=== PATIENT | female | born 1985 | race Two or more races ===

== ENCOUNTER 2023-03-23 07:45 | Emergency (ER) | payer MEDICAID, OTHER ==
[~2023-03-23] VITALS: Ht 157.5 cm; Wt 48.1 kg
[2023-03-23] MEDS ORDERED: cefTRIAXone SOD 500 MG VL IM ONE (09:30)
[2023-03-23] MEDS ORDERED: ONDANSETRON ODT 4 MG TAB PO ONE (09:30)
[2023-03-23] MEDS ORDERED: DexAMETHasone SOD PHOS 10MG/1ML VIAL INJ PO ONE (09:30)
[2023-03-23] MEDS ORDERED: ZOFR4T PO (09:51)
[2023-03-23] MEDS ORDERED: IBUP1TAB5 PO (09:51)
[2023-03-23] MEDS ORDERED: BENZ100C97 PO (09:51)
[2023-03-23] MEDS ORDERED: PROM1SOL4 PO (09:51)
[2023-03-23 10:00] VITALS: PULSE 76; RESP 15; O2SAT 98
[2023-03-23 10:15] VITALS: BP 113/77; PULSE 76; RESP 15; TEMP 98.2; O2SAT 98
== END 2023-03-23 10:37 | disposition home or self-care (01) ==
LOC: ER 07:45
DX: J06.9 Acute upper respiratory infection, unspecified (principal)
CPT/HCPCS: 96372; 99283; J0696; J1100; Q0162

== ENCOUNTER 2025-03-03 18:25 | Emergency (ER) | payer MEDICAID ==
[~2025-03-03] VITALS: Ht 157.5 cm; Wt 47.6 kg
[~2025-03-03 18:25] MED LIST: BENZ100C97 PO; IBUP1TAB5 PO; PROM1SOL4 PO; ZOFR4T PO
[2025-03-03 18:27] VITALS: BP 118/71; PULSE 81; RESP 18; TEMP 98.3; O2SAT 96
[2025-03-03] MEDS ORDERED: METH4PAK PO (18:45)
[2025-03-03] MEDS ORDERED: TIZA-142 PO (18:45)
[2025-03-03] MEDS ORDERED: AUG875T PO (18:45)
--- NOTE | 2025-03-03 18:46 | ED.PDOC ---
Back pain HPI HPI Comments 39-year-old female presents to the ED chief complaint right temporal jaw pain x1 week. Patient states pain came on sudden. Describes pain as sharp shooting 8/10 on pain scale worse with mastication. Reports no history apnea or grinding her teeth at night. States cold and warm liquids do not change the pain notes no fever or chills denies any known injury. Chief Complaint: Jaw Pain Time Seen by MD: 18:27 Reviewed Notes: Nurses Notes, Medications, Allergies Allergies: Coded Allergies: NO KNOWN ALLERGIES (Unverified , 03/23/23) Home Meds Active Scripts Amoxicillin & Pot Clavulanate (AUGMENTIN TABLET) 875 Mg Tb, 875 MG PO BID for 7 Days, #14 TAB Prov:KALEB [facility]ENTO [facility] 03/03/25 Tizanidine Hydrochloride (Tizanidine Hcl) 4 Mg Tab, 4 MG PO BID PRN for 7 Days, #14 TAB Prov:KALEB NASCIMENTO [facility] 03/03/25 Methylprednisolone (Medrol Dosepak) 4 Mg [place], 4 MG PO UD for 6 Days, #21 TAB UAD Prov:KALEB NASCIMENTO [facility] 03/03/25 Ibuprofen Micronized (Ibuprofen) 600 Mg Tab, 600 MG PO TIDWM for 10 Days, #30 TAB 0 Refills Prov:LALA DICKERSON NP 03/23/23 Benzonatate (Benzonatate) 100 Mg Cap, 100 MG PO TID for 10 Days, #30 CAP 0 Refills Prov:LALA DICKERSON NP 03/23/23 Ondansetron Odt 4MG Tab (ZOFRAN PO) 4 Mg Tb, 4 MG PO BIDPRN PRN for 5 Days, #10 TAB 0 Refills ODT TAB-DISSOLVE IN MOUTH, THEN SWALLOW Prov:LALA DICKERSON NP 03/23/23 Promethazine-Dm (Promethazine Dm 6.25-15 mg/5Ml) 1 Sofia Sofia, 5 ML PO TIDP PRN for 10 Days, #150 ML 0 Refills Prov:LALA DICKERSON NP 03/23/23 Information Source: Patient Mode of Arrival: Ambulatory Past Medical History PAST MEDICAL HISTORY: Denies Surgical History: Denies all surgeries LOG MANAGER History: No Pertinent LOG MANAGER History Family History Family History: Reviewed,noncontributory to illness Social History Smoker: Non-Smoker Alcohol: Denies ETOH Use Drugs: Denies Drug Use All Other Systems: Reviewed and Negative (see hpi) Physical Exam General Appearance: No Apparent Distress, Normal HEENT: Head (TENDERNESS PALPATED OVER RIGHT TEMPORAL JOINT NOTED CREPITUS WITH MASTICATION PATIENT ABLE TO OPEN UP JAW FULLY ), Pharynx Normal, TMs Normal Neck: Full Range of Motion, Non-Tender Respiratory: Lungs Clear, No Respiratory Distress, Normal Breath Sounds Cardiovascular: No Murmur, Normal Peripheral Pulses, Regular Rate/Rhythm Breast Exam: Deferred Gastrointestinal: Non Tender, Soft Genitalia: Deferred Pelvic: Deferred Rectal: Deferred Extremities: Normal capillary refill, Non-tender Musculoskeletal : Apperance: Normal Neurologic: Alert, care management associate II-XII nml as Tested, No Motor Deficits, Normal Affect, Normal Mood, No Sensory Deficits Cerebellar Function: Normal Reflexes: NOT DONE Skin: Dry, Normal Color, Warm Lymphatic: No Adenopathy Was a procedure done? Was a procedure done?: No Back Pain Differential Dx Differential Diagnosis: Fracture, Musculoskeletal Pain, Strain X-Ray, Labs, Meds, VS Vital Signs Date Time Temp Pulse Resp B/P (MAP) Pulse Ox O2 Delivery O2 Flow Rate FiO2 03/03/25 18:27 98.3 81 18 118/71 96 98.3 Current Medications Medications (Trade) Dose Ordered Sig/Meghann Route Start Time Stop Time Status Last Admin Ketorolac Tromethamine (Toradol Injection) 60 mg ONCE ONCE IM 03/03/25 18:45 03/03/25 18:46 DC 03/03/25 19:05 X-Ray, Labs, Meds, VS Comment REPORTS IMPROVEMENT PAIN REQUESTING DISCHARGE AT THIS TIME. SCRIPT TRIAL OF MEDROL DOSEPAK AND MUSCLE RELAXER ADVISED TAKE MEDICATION PRESCRIBED SIDE EFFECTS DISCUSSED. ADVISED TO CONSIDER A TEETH GUARD AT NIGHT AVOID CHEWING GUM STICK TO WEAN CLEAR LIQUIDS FOR A FEW DAYS UNTIL SYMPTOMS HAVE IMPROVED. ADVISED TO FOLLOW UP WITH HER PCP IN 2-3 DAYS NECESSARY ER RETURN PRECAUTIONS GIVEN PATIENT INDICATES UNDERSTANDING AGREES WITH DISCHARGE PLAN OF CARE Time of 1ST Reevaluation: 18:27 Reevaluation 1ST: Unchanged Time of 2ND Reevaluation: 19:28 Reevaluation 2ND: Improved Patient Education/Counseling: Diagnosis, Treatment, Need For Follow Up Family Education/Counseling: Diagnosis, Treatment SEPSIS Sepsis Screen Date sepsis recognized/suspect: Mar 03, 2025 Time Sepsis recognized/suspect: 1827 Recent Procedure: No On Antibiotic Therapy: No Respiratory Rate >20: No Heart Rate >90: No Temp<36 C (96.8 F) or >38.3 C: No SBP <90 or MAP <65 mmHG: No New Acute Mental Status Change: No Is the patient on CPAP, BIPAP,: No Vital Signs Date Time Temp Pulse Resp B/P (MAP) Pulse Ox O2 Delivery O2 Flow Rate FiO2 03/03/25 18:27 98.3 81 18 118/71 96 98.3 Medications Medications Dose Ordered Sig/Meghann Route Start Time Stop Time Status Last Admin Dose Admin Ketorolac Tromethamine 60 mg ONCE ONCE IM 03/03/25 18:45 03/03/25 18:46 DC 03/03/25 19:05 Departure 1 Departure Time of Disposition: 19:28 Impression: Primary Impression: TMJ inflammation Disposition: 01 HOME / SELF CARE / HOMELESS Condition: Stable e-Prescriptions Amoxicillin & Pot Clavulanate (AUGMENTIN TABLET) 875 Mg Tb 875 MG PO BID for 7 Days, #14 TAB Prov: KALEB NASCIMENTO 03/03/25 Tizanidine Hydrochloride (Tizanidine Hcl) 4 Mg Tab 4 MG PO BID PRN for 7 Days, #14 TAB Prov: KALEB NASCIMENTO 03/03/25 Methylprednisolone (Medrol Dosepak) 4 Mg [place] 4 MG PO UD for 6 Days, #21 TAB UAD Prov: KALEB NASCIMENTO 03/03/25 Discharged With: Significant Other Critical Care Note Critical Care Time?: No Stability Stability form required: KALEB Nagel Mar 03, 2025 18:46
[2025-03-03] MEDS: KETOROLAC TROMETH 60MG/2ML VIAL IM ONE (19:05)
== END 2025-03-03 19:40 | disposition home or self-care (01) ==
LOC: ER 18:25
DX: M27.2 Inflammatory conditions of jaws (principal); Z79.899 Other long term (current) drug therapy
CPT/HCPCS: 96372; 99283; J1885